=== PATIENT | male | born 1940 | race Caucasian/White ===

== ENCOUNTER 2019-11-16 21:15 | Emergency (ER) | payer OTHER, MEDICARE ==
[2019-11-16 21:33] VITALS: BP 134/80; PULSE 81; TEMP 97.6; BMI 29.0
--- OUTSIDE RECORDS SUMMARY | 2019-11-16 21:36 | XMS ---
:1940 Author Organization [facility] Care Team Providers Name Role Phone Jamison Loco Unavailable Unavailable Flavio, A Unavailable Unavailable Pancho, Deondre Unavailable Unavailable Bardack Unavailable Unavailable Pee, Cheryl Hussein Unavailable Unavailable Tricia, MD Unavailable Unavailable Tricia, MD Unavailable Unavailable Tricia, MD Unavailable Unavailable Tricia, MD Unavailable Unavailable Tricia, MD Unavailable Unavailable Tricia, MD Unavailable Unavailable Tricia, MD Unavailable Unavailable Tricia, MD Unavailable Unavailable Tricia, MD Unavailable Unavailable Tricia, MD Unavailable Unavailable Tricia, MD Unavailable Unavailable Tricia, MD Unavailable Unavailable Tricia, MD Unavailable Unavailable Tricia, MD Unavailable Unavailable Tricia, MD Unavailable Unavailable Tricia, MD Unavailable Unavailable Re-disclosure Warning The records that you are about to access may contain information from federally- assisted alcohol or drug abuse programs. If such information is present, then the following federally mandated warning applies: This information has been disclosed to you from records protected by federal confidentiality rules (42 CFR part 2). The federal rules prohibit you from making any further disclosure of this information unless further disclosure is expressly permitted by the written consent of the person to whom it pertains or as otherwise permitted by 42 CFR part 2. A general authorization for the release of medical or other information is NOT sufficient for this purpose. The Federal rules restrict any use of the information to criminally investigate or prosecute any alcohol or drug abuse patient.The records that you are about to access may contain highly sensitive health information, the redisclosure of which is protected by Article 27-F of the [facility] Public Health law. If you continue you may haveaccess to information: Regarding HIV / AIDS; Provided by facilities licensed or operated by the [facility] Office of Mental Health; or Provided by the [facility] Office for People With Developmental Disabilities. If such information is present, then the following [place] State mandated warning applies: This information has been disclosed to you from confidential records which are protected by state law. State law prohibits you from making any further disclosure of this information without the specific written consent of the person to whom it pertains, or as otherwise permitted by law. Any unauthorized further disclosure in violation of state law may result in a fine or fdc sentence or both. A general authorization for the release of medical or other information is NOT sufficient authorization for further disclosure. Allergies and Adverse Reactions Type Description Substance Reaction Status Data Source(s ) 3 PENICILLINS PENICILLINS Unknown (unknown) NEXTG EN ([facility] - [facility] ) Encounters Encounter Providers Location Date Indications Data Source(s ) Outpatient Attender: Buxton 11/05/2019 NEXTGEN ([facility] [place] 06:11:00 AM Medical [facility] Medical [facility]) Outpatient Attender: Buxton 10/29/2019 NEXTGEN ([facility] RaynerReferrer: 11:15:00 [facility] [place] [facility] ED[facility]) Outpatient Attender: Buxton 10/29/2019 NEXTGEN ([facility] [place] 08:01:00 AM Medical [facility] Medical [facility]) Outpatient Attender: Buxton 09/25/2019 NEXTGEN ([facility] RaynerReferrer: 10:00:00 AM [facility] [place] ED[facility] Medical [facility]) Outpatient Attender: Buxton 09/25/2019 NEXTGEN ([facility] [place] 09:37:00 AM Medical - [facility] ) Outpatient Attender: Buxton 09/24/2019 NEXTGEN ([facility] [place] 04:05:00 PM Medical - [facility]) Outpatient Attender: Buxton 09/21/2019 NEXTGEN ([facility] RaynerReferrer: 01:53:00 PM [facility] [place] ED[facility] Medical [facility]) Outpatient Attender: Buxton 09/18/2019 NEXTGEN ([facility] [place] 02:56:00 PM Medical [facility] Medical [facility]) Outpatient Attender: Bernice 07/12/2019 NEXT GEN ([facility] DavisReferrer: 03:00:00 PM [facility] [place] [facility]) Outpatient Attender: Jamison 07/12/2019 NEXTGEN ([facility] [place] 12:25:[facility] Outpatient Attender: Jamison 07/06/2019 NEXTGEN ([facility] [place] 02:11:00 [facility] Outpatient Attender: Jamison 06/01/2019 NEXTGEN ([facility] [place] 12:08:00 [facility] Outpatient Attender: Jamison 06/01/2019 NEXTGEN ([facility] [place] 11:58:00 [facility] Outpatient Attender: Jamison 06/01/2019 NEXTGEN ([facility] [place] 11:57:00 [facility] Outpatient Attender: Jamison 05/28/2019 NEXTGEN ([facility] RaynerReferrer: 12:05:00 PM [facility] [place] [facility] [place] [facility] ED[facility]) Outpatient Attender: Jamison 05/19/2019 NEXTGEN ([facility] [place] 02:43:00 [facility] Outpatient Attender: Jamison 05/18/2019 NEXTGEN ([facility] [place] 09:25:00 [facility]) Outpatient Attender: Jamison 05/17/2019 NEXTGEN ([facility] RaynerReferrer: 02:45:00 PM Medical [facility] [place] EDT [facility]) Outpatient Attender: Emi 05/08/2019 NEXTGEN ([facility] MD 04:58:00 PM [facility] Outpatient Attender: Jamison 05/01/2019 NEXTGEN ([facility] [place] 02:57:00 PM [facility]) Outpatient Attender: Jamison 04/23/2019 NEXTGEN ([facility] [place] 04:46:00 [facility] Outpatient Attender: Jamison 04/23/2019 NEXTGEN ([facility] [place] 03:23:00 PM Medical [place] [facility]) Outpatient Attender: Swift 04/20/2019 NEXTGEN ([facility] [place] 06:20:00 AM Medical - [place] [facility]) Outpatient Attender: Jamison 04/19/2019 NEXTGEN ([facility] [place] 04:43:00 PM Medical - [place] [facility]) Outpatient Attender: Jamison 04/16/2019 NEXTGEN ([facility] RaynerReferrer: 11:30:00 AM Medical - [place] EDT [facility]) Outpatient Attender: Jamison 03/22/2019 NEXTGEN ([facility] RaynerReferrer: 11:51:00 AM Medical - [place] EST [facility]) Outpatient Attender: Jamison 03/12/2019 NEXTGEN ([facility] [place] 10:01:00 AM Medical - [place] [facility]) Outpatient Attender: Jamison 12/29/2018 NEXTGEN ([facility] [place] 03:29:00 PM Medical - [place] [facility]) Outpatient Attender: Roxana 12/25/2018 NEXTGEN ([facility] BardackReferrer: 05:02:00 PM Medical - [place] Roxana Bardack EST Medical [facility]) Outpatient Attender: Jamison 12/18/2018 NEXTGEN ([facility] RaynerReferrer: 01:15:00 PM Medical - [place] EST [facility]) Outpatient Attender: Tyson 12/18/2018 NEXTGE N ([facility] SpencerReferrer: 11:15:00 AM Medical - [place] Pancho EST Medical [facility]) Outpatient Attender: Roxana 12/14/2018 NEXTGEN ([facility] BardackReferrer: 12:00:00 AM Medical - [place] Roxana Bardack EST Medical [facility]) Outpatient Attender: Roxana 12/11/2018 NEXTGEN ([facility] [place] 12:22:00 PM Medical - [place] [facility]) Outpatient Attender: Roxana 11/24/2018 NEXTGEN ([facility] BardackReferrer: 11:05:00 AM Medical - [place] Rox[place] Bardack EDT [facility]) Outpatient Attender: Jamison 04/20/2016 NEXTGEN ([facility] [place] 12:00:00 AM Medical - [place] [facility]) Outpatient Attender: Roxana 02/19/2011 NEXTGEN ([facility] [place] 01:51:00 PM Medical - [place] [facility]) Medications Medication Brand Start Product Dose Route Administrative Pharmacy [facility] Indications Reaction Description Data Name Date Form Instructions Instructions Source(s) 0.4 mg-300 RP NEXTGEN mcg-250 mcg ([facility] 0.4 mg-300 Medical - [facility]cg [facility] ) This may be an active medication. No end date is available. Start date above may not reflect actual date the medication was s tarted. Amlodipine 5 MG AMLODIPINE 11/05/2019 take 1.5 RP NEXTGEN Oral Tablet 5 BESYLATE 12:00:00 AM tablet by ([facility] mg 5 mg EDT oral route Medica [facility] - [place] [facility] [place] [facility] ) This may be an active medication. No end date is available. Amlodipine 5 MG AMLODIPINE 05/28/2019 take 1.5 RP NEXTGEN Oral Tablet 5 BESYLATE 12:00:00 AM tablet by ([facility] mg 5 mg EDT oral route Medica l - [place] [facility] [place] [facility] ) This may be an active medication. No end date is available. Amlodipine 5 MG AMLODIPINE 05/17/2019 take 1 RP NEXTGEN Oral Tablet 5 BESYLATE 12:00:00 AM tablet by ([facility] mg 5 mg EDT oral route Medica l - [place] [facility] [place] [facility]) This may be an active medication. No end date is available. Amlodipine 5 MG AMLODIPINE 04/20/2019 take 1 RP NEXTGEN Oral Tablet 5 BESYLATE 12:00:00 AM tablet by ([facility] mg 5 mg EDT oral route Medica [facility] - [place] [facility] [place] [facility] ) This may be an active medication. No end date is available. tadalafil 5 MG CIALIS 12/14/2016 take 1 RP NEXTGEN Oral Tablet 12:00:00 AM EST tablet by ([facility] [Cialis] 5 mg 5 oral route Medical - [place] mg every day [facility]) This may be an active medication. No end date is available. Insurance Providers Payer name Policy type Policy ID Covered Covered alliance party's Policy P js / Coverage alliance party ID relationship to Iqbal Inf ormation type iqbal [facility] [id number] SP [id number] CARE OPTIONS MEDICARE [id number] SP [id number] MISC AAR [id number] [id number] 1 [id number] Part B Par Providers Problems, Conditions, and Diagnoses Code Display Name Description Problem Type Effective Dates Data Source(s) R10.32 Left lower LLQ pain Diagnosis 10/29/2019 NEXTGEN quadrant pain 11:15:00 AM EDT ([facility]) E55.9 Vitamin D Vitamin D Diagnosis 09/25/2019 NEXTGEN deficiency, deficiency 10:00:00 AM EDT ([facility] unspecified [facility]) Z85.46 Personal history History of Diagnosis 09/25/2019 NEXTGEN of malignant prostate cancer 10:00:00 AM EDT ([facility] neoplasm of [facility] prostate [facility]) I10 Essential Essential Diagnosis 09/25/2019 NEXTGEN (primary) (primary) 10:00:00 AM EDT ([facility] hypertension hypertension [facility]) Z00.00 Encounter for Encounter for Diagnosis 09/25/2019 NEXTGEN general adult adult annual 10:00:00 AM EDT ([facility] physical exam Medical - [place] examination without abnormal [facility] without abnormal finding [facility] ) findings Z71.89 Other specified Advance care Diagnosis 04/16/2019 NEXTGEN counseling planning 11:30:00 AM EDT ([facility]) R03.0 Elevated Elevated blood Diagnosis 04/16/2019 NEXTGEN blood-pressure pressure reading 11:30:00 AM EDT ([facility] reading, without in office without M edical - [place] diagnosis of diagnosis of [place] [facility] hypertension hypertension [facility]) C61 Malignant neoplasm Malignant neoplasm Diagnosis 0 NEXTGEN of prostate of prostate 11:30:00 AM EDT ([facility]) E78.00 Pure Pure Diagnosis 12/18/2018 NEXTGEN hypercholesterolem hypercholesterolem 01:15:00 PM EST ([facility] ia, unspecified ia, unspecified [facility]) Surgeries/Procedures Procedure Description Date Indications Data Source(s) IIV NO PRSV INCREASED AG IIV NO PRSV INCREASED AG 10/29/2019 NEXTGEN IM IM 12:00:00 ([facility]) Administration of Admin influenza virus 10/29/2019 N EXTGEN influenza virus vaccine [facility]/OUTPATIENT VISIT OFFICE/OUTPATIENT VISIT 10/29/2019 NEXTGEN EST EST 12:00:00 ([facility]) PER PM REEVAL EST PAT PER PM REEVAL EST PAT 09/25/2019 NEXTGEN 65+ YR 65+ YR 12:00:00 ([facility]) Brief check in by md/qhp Brief check in by md/qhp 05/28/2019 NEXTGEN 12:00:00 ([facility]) ELECTROCARDIOGRAM ELECTROCARDIOGRAM 12/14/2018 NEXTG EN COMPLETE COMPLETE 12:00:00 ([facility]) COMPLETE CBC W/AUTO DIFF COMPLETE CBC W/AUTO DIFF 12/14/2018 NEXTGEN WBC WBC 12:00:00 ([facility]) ASSAY THYROID STIM ASSAY THYROID STIM 12/14/2018 NEX TGEN HORMONE HORMONE 12:00:00 ([facility]) ASSAY OF FREE THYROXINE ASSAY OF FREE THYROXINE 12/14/2018 NEXTGEN 12:00:00 ([facility]) GLYCOSYLATED HEMOGLOBIN GLYCOSYLATED HEMOGLOBIN 12/14/2018 NEXTGEN TEST TEST 12:00:00 ([facility]) VITAMIN D 25 HYDROXY VITAMIN D 25 HYDROXY 12/14/2018 NEXTGEN 12:00:00 ([facility]) UR ALBUMIN QUANTITATIVE UR ALBUMIN QUANTITATIVE 12/14/2018 NEXTGEN 12:00:00 ([facility]) URNLS DIP STICK/TABLET URINALYSIS AUTO W/O 12/14/2018 NEXTGEN RGNT AUTO W/O MICROSCOPY SCOPE 12:00:00 ([facility]) LIPID PANEL LIPID PANEL 12/14/2018 NEXTGEN 12:00:00 ([facility]) COMPREHEN METABOLIC COMPREHEN METABOLIC 12/14/2018 N EXTGEN PANEL PANEL 12:00:00 ([facility]) ROUTINE VENIPUNCTURE ROUTINE VENIPUNCTURE 12/14/2018 NEXTGEN 12:00:00 ([facility])
--- NOTE | 2019-11-16 21:49 | PDOC ---
History of Present Illness - General Chief Complaint: Weakness Stated Complaint: HEART RATE SLOWED DOWN Time Seen by Provider: 11/16/19 21:32 History Source: Patient Exam Limitations: No Limitations - History of Present Illness Initial Comments: 11/16/19 21:47 This is a 79-year-old male who comes in complaining of his heart rate was slow. Patient has an apple watch and the monitor went off this evening telling him his heart rate was in the 40s. Patient had no symptoms. Patient got up walked around and still had no symptoms. Patient said that the watch continue to tell him his heart rate was in the 40s. Patient however did not check his pulse. Here in the emergency room patient's heart rate was in the 80s. Patient denies history of slow heart rate in the past. Allergies: as per nursing notes Past Medical History: none Social history: Lives with family. No smoking. No alcohol. No illicit drugs. Surgical history: None General: No fevers or chills, no weakness, no weight loss HEENT: No change in vision. No sore throat,. No ear pain CardioVascular: no chest discomfort. No shortness of breath, slow heart rate Respiratory:No cough, or wheezing. Gastrointestinal: no nausea, vomiting, diarrhea or constipation, No rectal bleeding Genitourinary: No dysuria, hematuria, or frequency Musculoskeletal: No joint or muscle pain or swelling Neurologic: No headache, vertigo, dizziness or loss of consciousness Psychiatric: nor depression Skin: No rashes or easy bruising Endocrine: no increased thirst or abnormal weight change Allergic: no skin or latex allergy All other systems reviewed and normal Exam: General: Well-nourished well-developed individual, no acute distress HEENT: Throat: Normal, tonsils normal, no erythema or exudate Neck: Supple, no meningeal signs, no lymphadenopathy Eyes::Pupils equal reactive and round, extraocular motion intact Chest: Nontender to palpation Cardiac: S1-S2 normal, regular rate and rhythm, no murmurs rubs or gallops Respiratory: Lungs clear to auscultation bilateral Abdomen: Soft, nondistended, normal bowel sounds, there is no tenderness on palpation diffusely Extremities: Warm, dry, no cyanosis, clubbing, or edema Skin: No rashes Neuro: Alert and oriented x3, CN II - XII intact, nonfocal exam with normal strength, normal sensation, normal reflexes, normal gait, Psych: Normal mood and affect Past History - Medical History Allergies/Adverse Reactions: Allergies Allergy/AdvReac Type Severity Reaction Status Date / Time Penicillins Allergy Mild Rash Verified 11/16/19 21:20 Home Medications: Ambulatory Orders Amlodipine Besylate 7.5 mg PO HS 11/16/19 COPD: Yes HTN: Yes - Psycho-Social/Smoking History Smoking History: Former smoker Have you smoked in the past 12 months: No If you are a former smoker, when did you quit?: 20 YEARS AGO Information on smoking cessation initiated: No - Substance Abuse Hx (Audit-C & DAST Scrn) How often the patient has a drink containing alcohol: 4 0r more times/wk Number of drinks the patient has on a typical day: 1 or 2 Score: In Men: 4 or > Positive; In Women: 3 or > Positive: 4 Screen Result (Pos requires Nsg. Audit-10AR): Positive In the last yr the pt used illegal drug/Rx for NonMed reason: No Score: Yes response is considered Positive: 0 Screen Result (Positive result requires Nsg. DAST-10): Negative *Physical Exam - Vital Signs Last Vital Signs Temp Pulse Resp BP Pulse Ox 97.6 F 81 18 134/80 99 11/16/19 21:20 11/16/19 21:20 11/16/19 21:20 11/16/19 21:20 11/16/19 21:20 Discharge - Discharge Information Problems reviewed: Yes Clinical Impression/Diagnosis: History of bradycardia Condition: Stable Disposition: HOME - Admission No - Follow up/Referral - Patient Discharge Instructions Additional Instructions: Return to the emergency department immediately with ANY new, persistent or worsening symptoms. Continue any medications as previously prescribed by your physician. You should follow up with your primary doctor as soon as possible regarding today's emergency department visit. . Please make sure your doctor reviews the results of your emergency evaluation. Thank you for coming to the Emergency Department today for your care. It was a pleasure to see you today. Please note that your evaluation is INCOMPLETE until you follow-up with your doctor. - Post Discharge Activity
--- NOTE | 2019-11-18 07:08 | EKG ---
Test Reason : Blood Pressure : / mmHG Vent. Rate : 071 BPM Atrial Rate : 071 BPM P-R Int : 176 ms QRS Dur : 094 ms QT Int : 410 ms P-R-T Axes : 016 -13 068 degrees QTc Int : 445 ms NORMAL SINUS RHYTHM NONSPECIFIC ST AND T WAVE ABNORMALITY ABNORMAL ECG NO PREVIOUS ECGS AVAILABLE CLINICAL CORRELATION IS RECOMMENDED Confirmed by RAYO ROWLEY MD ([id number]) on 11/18/2019 7:07:41 AM Referred By: MD BEAL Confirmed By:RAYO ROWLEY MD
== END 2019-11-16 22:34 | disposition home or self-care (01) ==
LOC: FER 21:15
DX: Z86.79 Personal history of other diseases of the circulatory system (principal)
CPT/HCPCS: 93005; 99283-25